=== PATIENT | female | born 1990 | race Caucasian/White ===

== ENCOUNTER 2020-02-10 11:22 | Outpatient (CLI) | payer OTHER | END 2020-02-10 11:23 | disposition home or self-care (01) | LOC: LAB 11:22 | PROVIDERS: ATTEND Obstetrics & Gynecology | DX: Z01.812 Encounter for preprocedural laboratory examination (principal); Z11.59 Encounter for screening for other viral diseases | CPT/HCPCS: 87635; U0003 ==

== ENCOUNTER 2020-02-15 10:02 | Inpatient (IN) | payer OTHER ==
[~2020-02-15 10:02] MED LIST: Bupivacaine 0.25% HCL 30 ML VIAL ONE
[2020-02-15] MEDS ORDERED: Docusate 100 MG CAP PO PRN (22:14)
[2020-02-15] MEDS ORDERED: Misoprostol 200 MCG TAB PR PRN (22:14)
[2020-02-15] MEDS ORDERED: Promethazine HCl 25 MG/ML VIAL IM PRN (22:14)
[2020-02-15] MEDS ORDERED: Diphenoxylate HCl/Atropine Tablet PO PRN ×2 (22:14)
[2020-02-15] MEDS ORDERED: Butorphanol Tartrate 1 MG/ML VIAL SLOW IVP PRN (22:14)
[2020-02-15] MEDS ORDERED: NS / Oxytocin 40 units/1000ml 1,000 ML IV PRN (22:14)
[2020-02-15] MEDS ORDERED: HYDROcodone/Acetaminophen 5/325 mg Tablet PO PRN ×2 (22:14)
[2020-02-15] MEDS ORDERED: Zolpidem Tartrate 5 MG TAB PO PRN (22:14)
[2020-02-15] MEDS ORDERED: Ibuprofen 800 MG TAB PO PRN (22:14)
[2020-02-15] MEDS ORDERED: Carboprost 250 MCG/ML AMP IM PRN (22:14)
[2020-02-15] MEDS ORDERED: Lidocaine 1% (PF) 30 ML VIAL SC PRN (22:14)
[2020-02-15] MEDS ORDERED: hydrALAZINE 20 MG/ML VIAL SLOW IVP PRN (22:14)
[2020-02-15] MEDS ORDERED: Ondansetron PF 4 MG/2 ML Vial IVP PRN (22:14)
[2020-02-15] MEDS ORDERED: Acetaminophen 500 MG TAB PO PRN (22:14)
[2020-02-15] MEDS ORDERED: Methylergonovine 0.2 MG/ML VIAL IM PRN (22:14)
[2020-02-15] MEDS ORDERED: NS w/ Oxytocin 10 units 500 ML IV SCH ×2 (22:15)
[2020-02-15 22:21] VITALS: BMI 41.3
--- NOTE | 2020-02-15 22:21 | PDOC.LDHP ---
Labor and Delivery H&P Chief complaint: scheduled induction HPI: 30 y/o at 39 3/7 weeks presents for term induction of labor. Current gestational age (weeks): 39 Due date: 02/19/20 Grav: 2 Para: 1 Current complications: none Current medications: pre-aung vitamins Allergies/Adverse Reactions: Allergies Allergy/AdvReac Type Severity Reaction Status Date / Time No Known Allergies Allergy Verified 02/15/20 22:16 Social history: none - Physical Exam Vital signs reviewed and normal: yes General: NAD Heart: RRR Lungs: CTAB Abdomen: gravid Extremeties: no edema FHT: category 1 - Assessment L&D Assessment: elective induction at term - Plan Plan: admit to L&D, cervical ripening
[2020-02-15] MEDS ORDERED: Penicillin G Potassium 5 MILL.UNITS in Sodium Chloride 0.9% 100 ML IVPB SCH (22:30)
[2020-02-15 22:43] LABS: Hemoglobin 13.3 g/dL (12.0-16.0); Mean Corpuscular HGB CONC 34.1 g/dL (32.0-36.0); Mean Corpuscular Volume 90.9 fL (78.0-98.0); Mean Platelet Volume 11.2 fL (7.4-10.4); Platelet Count 183 thou/uL (130-400); RBC Distribution Width 13.3 % (11.5-14.5); Red Blood Cell (RBC) Count 4.28 mill/uL (4.20-5.40); White Blood Cell (WBC) Count 9.8 thou/uL (4.8-10.8)
[2020-02-15 23:20] LABS: HBSAg Index 0.14 S/CO (0-0.99); Hep B Surf Ag Non-Reactive S/CO (NonReactive); Syphilis Antibody Nonreactive (Nonreactive); Syphilis Antibody Index 0.03 S/CO (<1.00 Non-Reactive)
[2020-02-16] MEDS ORDERED: Fentanyl 4 mcg/Bup 0.1% Cadd 100 ML ONE ×2 (07:40→15:45)
[2020-02-16] MEDS: Penicillin G 2.5 MILL.units 2.5 MILL.UNITS in Premix Bag 1 BAG IVPB SCH ×3 (09:02→17:08)
[2020-02-16] MEDS: Lactated Ringer's 1,000 ML IV SCH (09:15)
[2020-02-16] MEDS ORDERED: EPHEDRINE 25 MG/5 ML SYRINGE SLOW IVP PRN ×2 (10:49→11:16)
[2020-02-16] MEDS ORDERED: diphenhydrAMINE 50 MG/ML VIAL IVP PRN ×2 (10:49→11:16)
[2020-02-16] MEDS ORDERED: Lactated Ringer's 500 ML IV PRN ×2 (10:49→11:16)
[2020-02-16] MEDS ORDERED: Promethazine HCl 25 MG/ML VIAL IM PRN ×3 (10:49→21:15)
[2020-02-16] MEDS ORDERED: Ondansetron PF 4 MG/2 ML Vial IVP PRN ×3 (10:49→21:15)
[2020-02-16] MEDS ORDERED: Acetaminophen 325 MG TAB PO PRN ×2 (10:49→11:16)
[2020-02-16] MEDS ORDERED: Naloxone HCl 0.4 mg/ml Vial IVP PRN ×4 (10:49→11:16)
[2020-02-16] MEDS ORDERED: Fentanyl 4 mcg/Bupivacaine 0.1% Cassette 100 ML EPIDURAL SCH ×2 (11:00→11:16)
[2020-02-16] MEDS ORDERED: Communication Order-Pharmacy FS SCH ×2 (11:00→11:30)
[2020-02-16] MEDS: Misoprostol 100 MCG TAB VAG SCH (13:21)
[2020-02-16] MEDS ORDERED: Calcium Carbonate 500 MG ChewTAB PO SCH (14:45)
[2020-02-16] MEDS ORDERED: Bisacodyl 10 MG SUPP PR PRN (21:15)
[2020-02-16] MEDS ORDERED: Zolpidem Tartrate 5 MG TAB PO PRN (21:15)
[2020-02-16] MEDS ORDERED: Milk Of Magnesia 30 ML UDCUP PO PRN (21:15)
[2020-02-16] MEDS ORDERED: Lanolin Ointment 7 GM TUBE TOP PRN (21:15)
[2020-02-16] MEDS ORDERED: diphenhydrAMINE 25 MG CAP PO PRN (21:15)
[2020-02-16] MEDS ORDERED: Misoprostol 200 MCG TAB VAG PRN (21:15)
[2020-02-16] MEDS ORDERED: NS / Oxytocin 40 units/1000ml 1,000 ML IV SCH (21:15)
[2020-02-16] MEDS ORDERED: Methylergonovine 0.2 MG/ML VIAL IM PRN (21:15)
[2020-02-16] MEDS ORDERED: HYDROcodone/Acetaminophen 5/325 mg Tablet PO PRN ×2 (21:15)
[2020-02-16] MEDS ORDERED: hydrALAZINE 20 MG/ML VIAL SLOW IVP PRN (21:15)
[2020-02-16] MEDS ORDERED: Benzocaine-Menthol 82.5 ML CAN TOP PRN (21:15)
[2020-02-16] MEDS ORDERED: Preparation H Ointment 28 GM TUBE PR PRN (21:15)
[2020-02-16] MEDS: Docusate Calcium (SURFAK) 240 MG CAP PO SCH (22:22)
[2020-02-16] MEDS: Ibuprofen 800 MG TAB PO SCH (22:22)
[2020-02-17] MEDS: Ibuprofen 800 MG TAB PO SCH ×4 (00:42→16:48)
[2020-02-17 06:08] LABS: #Eosinphils 0.1 thou/uL (0.0-0.7); #Lymphocytes 2.4 thou/uL (1.20-3.40); #Monocytes 1.3 thou/uL (0.11-0.59); #Neutrophils 9.3 thou/uL (1.40-6.50); %Basophils 0.3 % (0.0-1.0); %Eosinophils 0.8 % (0.0-10.0); %Lymphocytes 18.1 % (21.0-51.0); %Monocytes 10.1 % (0.0-10.0); %Neutrophils 70.6 % (42.0-75.0); Hemoglobin 11.7 g/dL (12.0-16.0); Mean Corpuscular Hemoglobin 32.4 pg (27.0-31.0); Mean Corpuscular Volume 92.7 fL (78.0-98.0); Mean Platelet Volume 11.1 fL (7.4-10.4); Platelet Count 145 thou/uL (130-400); RBC Distribution Width 13.3 % (11.5-14.5); Red Blood Cell (RBC) Count 3.62 mill/uL (4.20-5.40); White Blood Cell (WBC) Count 13.2 thou/uL (4.8-10.8)
[2020-02-17] MEDS: Ferrous Sulfate 325 MG TAB PO SCH ×2 (07:42→16:48)
[2020-02-17] MEDS ORDERED: Measles/Mumps/Rubella 10 MCG/0.5 ML VIAL SC ONE (09:00)
[2020-02-17] MEDS ORDERED: Varicella virus, LIVE 0.5 ML VIAL SC ONE (09:00)
[2020-02-17] MEDS ORDERED: Adacel (T-DAP) 0.5 ML SYRINGE IM ONE (09:00)
[2020-02-17] MEDS: Docusate Calcium (SURFAK) 240 MG CAP PO SCH (09:31)
[2020-02-17] MEDS: Penicillin G 2.5 MILL.units 2.5 MILL.UNITS in Premix Bag 1 BAG IVPB SCH ×4 (10:34→10:37)
[2020-02-17] MEDS: Misoprostol 100 MCG TAB VAG SCH ×2 (10:35→10:36)
[2020-02-17] MEDS: Lactated Ringer's 1,000 ML IV SCH (10:36)
--- NOTE | 2020-02-17 14:07 | PDOC.PP ---
Post Progress Note Post Day #: 1 PO intake tolerated: yes Flatus: yes Ambulation: yes Vital Signs (12 hours) Temp Pulse Resp BP Pulse Ox 02/17/20 11:26 98.2 F 65 20 99/58 L 02/17/20 08:12 97.9 F 68 20 117/82 98 02/17/20 05:35 98.1 F 75 18 129/64 Weight Weight 264 lb - Physical Examination General: NAD Cardiovascular: no m/r/g, RRR Respiratory: clear to auscultation bilaterally, non-labored breathing Abdominal: + bowel sounds, lochia, no distention Extremities: negative homans (B) Skin: CS incision dry & intact, no rash Neurological: no gross focal deficits Psychiatric: A&Ox3, normal affect Result Diagrams: 02/17/20 05:54 Additional Labs: Post Labs Blood Type O POSITIVE 02/15/20 23:56 Hep Bs Antigen Non-Reactive S/CO (NonReactive) 02/15/20 22:32
[2020-02-17 17:04] VITALS: BP 118/74; TEMP 98.3
--- NOTE | 2020-02-18 05:10 | DN ---
DATE OF PROCEDURE: 02/16/2020 TIME OF SERVICE: 1749 [employer] Day[employer] [place] Time. PREOPERATIVE DIAGNOSIS: Intrauterine at 39 weeks and 4 days with a term induction of labor. POSTOPERATIVE DIAGNOSIS: Intrauterine at 39 weeks and 4 days with a term induction of labor. PROCEDURE PERFORMED: Spontaneous vaginal delivery over intact perineum. FINDINGS: Viable female infant, weighing 3278 g or 7 pounds 4 ounces, Apgars 8 and 9. QUANTITATIVE BLOOD LOSS: 25. COMPLICATIONS: None. PROCEDURE IN DETAIL: The patient presented to [facility] where she was admitted to the labor and delivery service. The patient underwent a normal and uneventful labor with normal cervical dilatation until she was found to be completely dilated. She was then allowed to push and was able to bring the baby down and delivered the baby in a vertex presentation without difficulties. Once the head delivered in occiput anterior position, the shoulders followed spontaneously along with the rest of the baby's body. Once out the baby's mouth and nose were bulb suctioned. The cord was clamped and cut and baby was handed to waiting attendants. Cord blood was collected. Gentle fundal massage was performed and the placenta delivered intact without problems. Hemostasis was assured. Quantitative blood loss was calculated. Inspection of the cervix, vaginal vault, and perineum did not reveal any lacerations needing suturing. Once again, hemostasis was within normal limits and the patient was allowed to recover in the labor and delivery room. Baby went to nursery. Job ID: [id number]
== END 2020-02-17 20:39 | disposition home or self-care (01) | DRG 807 ==
LOC: L&D 20:53 → 3SW 02-16 21:05 → EDSTATUS 02-19 10:01
PROVIDERS: ADMIT Obstetrics & Gynecology; ATTEND Obstetrics & Gynecology
PROC: 10E0XZZ Delivery of Products of Conception, External Approach (ICD-10-PCS; principal; 2020-02-17)
DX: O80 Encounter for full-term uncomplicated delivery (principal); Z37.0 Single live birth; Z3A.39 39 weeks gestation of pregnancy
CPT/HCPCS: 36415; 51702; 85025; 85027; 86780; 86850; 86900; 86901; 87340; J2405; J2540; J2590; J3490; S0020